=== PATIENT | female | born 1950 | race Caucasian/White ===

== ENCOUNTER → 2017-03-17 | Outpatient (CLI) | payer MEDICARE ==
[2017-03-17 09:27] LABS: Blood Urea Nitrogen 11 mg/dL (7-17); Non-African American GFR(MDRD) >60 (>60 ml/min/1.73 sqM)
== END | disposition home or self-care (01) ==
LOC: LABWHC1 08:40
PROVIDERS: ATTEND Neurological Surgery
DX: D33.0 Benign neoplasm of brain, supratentorial (principal)
CPT/HCPCS: 36415; 82565; 84520

== ENCOUNTER → 2017-04-24 | Outpatient (CLI) | payer MEDICARE ==
[2017-04-24 10:38] LABS: Blood Urea Nitrogen 11 mg/dL (7-17); Non-African American GFR(MDRD) >60 (>60 ml/min/1.73 sqM)
--- NOTE | 2017-04-24 13:20 | CT ---
EXAMINATION TYPE: CT angio head DATE OF EXAM: 04/24/2017 HISTORY: Headache, Family history of ischemic heart disease COMPARISON: 03/11/2016 and 03/23/2017 CT DLP: 2277 mGycm. Automated Exposure Control for Dose Reduction was Utilized. TECHNIQUE: CTA scan of the neck is performed without and with IV Contrast, patient injected with 100 ml mL of Omnipaque 350, axial images are obtained, coronal and sagittal reformatted images are revie wed. Three-D reconstructed images are created on an independent workstation and reviewed. FINDINGS: Carotid/Vascular Structures: Although the posterior communicating arteries appear diminutive the circ le of Ayala appears complete. There is no focal stenosis or intracranial aneurysm appreciated. The l eft vertebral artery is diminutive with right dominance. Other: Right frontal encephalomalacia and right frontal craniotomy defect with calvarial plates are s een from prior meningioma resection. The previously seen small focus of enhancement along the right f rontal lobe laterally on the prior MRI measuring 8 mm that was dural based and stable is not well more reciated on today's examination. No abnormal enhancement is seen. No intracranial mass effect is pres ent. Ventricles and peripheral sulci are symmetric. No intracranial hemorrhage on the unenhanced imag es. Paranasal sinuses are well aerated. IMPRESSION: 1. No evidence of focal arterial stenosis or intracranial aneurysm. 2. No evidence of acute intracranial hemorrhage or mass effect. 3. Right frontal lobe encephalomalacia and postoperative changes from prior meningioma resection.
== END ==
LOC: RADCTMAIN 09:51
PROVIDERS: ATTEND Neurological Surgery
DX: G93.89 Other specified disorders of brain (principal); Z98.890 Other specified postprocedural states; Z86.011 Personal history of benign neoplasm of the brain
CPT/HCPCS: 82565; 84520; 70496; 36415; Q9967

== ENCOUNTER 2017-08-08 20:41 | Inpatient (IN) | payer MEDICARE ==
[2017-08-08] MEDS ORDERED: SODIUM CHLORIDE 0.9% 1,000 ML IV STA (21:16)
--- NOTE | 2017-08-08 21:30 | ED ---
Abdominal Pain HPI - General Chief Complaint: Abdominal Pain Stated Complaint: Abd pain Time Seen by Provider: 08/08/17 21:09 Source: patient, family, RN notes reviewed Mode of arrival: ambulatory Limitations: no limitations - History of Present Illness Initial Comments: This is a 67-year-old female who presents to the emergency department with chief complaint of abdominal pain. Patient states that she has had generalized abdominal pain for the past 4 days. She describes the pain as dull and achy and currently rates it as 5/10. She states that the pain is made worse with coughing and moving quickly. Pain is made better when patient lies in the position. She admits to associated chills and nausea. Denies vomiting, diarrhea or constipation. Denies fevers, chest pain or shortness of breath. - Related Data Allergies Allergy/AdvReac Type Severity Reaction Status Date / Time Sulfa (Sulfonamide Allergy Rash/Hives Verified 08/08/17 20:46 Antibiotics) lorazepam [From Ativan] AdvReac Unknown Verified 08/08/17 20:47 Review of Systems ROS Statement: Those systems with pertinent positive or pertinent negative responses have been documented in the HPI. ROS Other: All systems not noted in ROS Statement are negative. Past Medical History Past Medical History: Thyroid Disorder Additional Past Medical History / Comment(s): osteoporosis History of Any Multi-Drug Resistant Organisms: None Reported Past Surgical History: Breast Surgery, Tubal Ligation Past Psychological History: No Psychological Hx Reported Smoking Status: Former smoker Past Alcohol Use History: Occasional Past Drug Use History: None Reported General Exam - General Exam Comments Initial Comments: General: Awake and alert, well-developed; in no apparent distress. is at bedside. HEENT: Head atraumatic, normocephalic. Pupils are equal, round and reactive to light. Extraocular movements intact. Oropharynx moist without erythema or exudate. Neck: Supple. Normal ROM. Cardiovascular: Regular rate and rhythm. No murmurs, rubs or gallops. Chest symmetrical. Respiratory: Lungs clear to auscultation bilaterally. No wheezes, rales or rhonchi. Normal respiratory effort with no use of accessory muscles. Abdomen: Soft, non-distended. Tenderness on palpation of epigastrium with guarding. No rigidity, rebound. Normal bowel sounds in all 4 quadrants. Musculoskeletal: Normal ROM, no tenderness bilateral upper and lower extremities. Skin: [place], warm and dry without rashes or lesions. Neurological: Alert and oriented x3. CN II-XII grossly intact. Speech is fluent and answers are appropriate. No focal neuro deficits. Psychiatric: Normal mood and affect. No overt signs of depression or anxiety noted. Limitations: no limitations Course Vital Signs 08/08/17 08/08/17 20:42 22:55 Temperature 97.8 F Pulse Rate 69 83 Respiratory 20 18 Rate Blood Pressure 128/71 146/65 O2 Sat by Pulse 98 96 Oximetry - Reevaluation(s) Reevaluation #1: Patient was reevaluated and findings were discussed. Patient's abdomen is tender on palpation and she continues to complain of abdominal pain. Patient states that she has a family history of abdominal aortic aneurysms. There is a pulsatile mass felt on palpation of the patient's abdomen. Computed tomography scan of abdomen and pelvis with IV contrast will be obtained at this time. Pending results. 08/08/17 22:57 Reevaluation #2: Computed tomography scan of abdomen and pelvis with contrast revealed evidence for infectious versus ischemic colitis. Patient was started on broad-spectrum antibiotics, Zosyn and a second liter bolus was administered. Findings were discussed with patient and she is aware that she will be admitted to the hospital. She is in agreement. 08/09/17 00:22 Medical Decision Making - Medical Decision Making This is a 67-year-old female who presents to the emergency department with chief complaint of abdominal pain. CBC, CMP, coags and a UA were within normal limits. Patient continued to be tender in epigastrium and right upper quadrant so a computed tomography scan was obtained which revealed evidence for infectious versus ischemic colitis. This case was discussed with attending physician, Dr. Veloz who also evaluated the patient. Ultrasound gallbladder revealed no evidence for gallstones or dilated ducts. Patient will be admitted to Dr. David muniz with diagnosis of colitis. She will continue IV Zosyn. Findings and plan were discussed with patient who is in agreement. She is in no acute distress and vital signs are stable. All questions answered. - Lab Data Result diagrams: 08/08/17 21:06 08/08/17 21:06 Lab Results 08/08/17 08/08/17 08/08/17 Range/Units 21:06 21:06 21:06 WBC 7.5 (3.8-10.6) k/uL RBC 3.87 (3.80-5.40) m/uL Hgb 12.4 (11.4-16.0) gm/dL Hct 38.1 (34.0-46.0) % MCV 98.4 (80.0-100.0) fL MCH 31.9 (25.0-35.0) pg MCHC 32.4 (31.0-37.0) g/dL RDW 12.8 (11.5-15.5) % Plt Count 181 (150-450) k/uL Neutrophils % 76 % Lymphocytes % 17 % Monocytes % 5 % Eosinophils % 1 % Basophils % 0 % Neutrophils # 5.7 (1.3-7.7) k/uL Lymphocytes # 1.2 (1.0-4.8) k/uL Monocytes # 0.4 (0-1.0) k/uL Eosinophils # 0.1 (0-0.7) k/uL Basophils # 0.0 (0-0.2) k/uL PT 9.5 (9.0-12.0) sec INR 0.9 (<1.2) APTT 22.3 (22.0-30.0) sec Sodium 138 (137-145) mmol/L Potassium 4.0 (3.5-5.1) mmol/L Chloride 103 (98-107) mmol/L Carbon Dioxide 26 (22-30) mmol/L Anion Gap 9 mmol/L BUN 14 (7-17) mg/dL Creatinine 0.50 L (0.52-1.04) mg/dL Est GFR (MDRD) Af Amer >60 (>60 ml/min/1.73 sqM) Est GFR (MDRD) Non-Af >60 (>60 ml/min/1.73 sqM) Glucose 84 (74-99) mg/dL Plasma Lactic Acid Law (0.7-2.0) mmol/L Calcium 9.0 (8.4-10.2) mg/dL Total Bilirubin 0.3 (0.2-1.3) mg/dL AST 25 (14-36) U/L ALT 29 (9-52) U/L Alkaline Phosphatase 52 (38-126) U/L Total Protein 6.3 (6.3-8.2) g/dL Albumin 3.9 (3.5-5.0) g/dL Amylase 87 (30-110) U/L Lipase 154 (23-300) U/L Urine Color Urine Appearance (Clear) Urine pH (5.0-8.0) Ur Specific Stanton (1.001-1.035) Urine Protein (Negative) Urine Glucose (UA) (Negative) Urine Ketones (Negative) Urine Blood (Negative) Urine Nitrite (Negative) Urine Bilirubin (Negative) Urine Urobilinogen (<2.0) mg/dL Ur Leukocyte Esterase (Negative) Urine RBC (0-5) /hpf Urine WBC (0-5) /hpf Amorphous Sediment (None) /hpf Urine Mucus (None) /hpf 08/08/17 08/09/17 Range/Units 22:00 00:16 WBC (3.8-10.6) k/uL RBC (3.80-5.40) m/uL Hgb (11.4-16.0) gm/dL Hct (34.0-46.0) % MCV (80.0-100.0) fL MCH (25.0-35.0) pg MCHC (31.0-37.0) g/dL RDW (11.5-15.5) % Plt Count (150-450) k/uL Neutrophils % % Lymphocytes % % Monocytes % % Eosinophils % % Basophils % % Neutrophils # (1.3-7.7) k/uL Lymphocytes # (1.0-4.8) k/uL Monocytes # (0-1.0) k/uL Eosinophils # (0-0.7) k/uL Basophils # (0-0.2) k/uL PT (9.0-12.0) sec INR (<1.2) APTT (22.0-30.0) sec Sodium (137-145) mmol/L Potassium (3.5-5.1) mmol/L Chloride (98-107) mmol/L Carbon Dioxide (22-30) mmol/L Anion Gap mmol/L BUN (7-17) mg/dL Creatinine (0.52-1.04) mg/dL Est GFR (MDRD) Af Amer (>60 ml/min/1.73 sqM) Est GFR (MDRD) Non-Af (>60 ml/min/1.73 sqM) Glucose (74-99) mg/dL Plasma Lactic Acid Law <0.5 L (0.7-2.0) mmol/L Calcium (8.4-10.2) mg/dL Total Bilirubin (0.2-1.3) mg/dL AST (14-36) U/L ALT (9-52) U/L Alkaline Phosphatase (38-126) U/L Total Protein (6.3-8.2) g/dL Albumin (3.5-5.0) g/dL Amylase (30-110) U/L Lipase (23-300) U/L Urine Color Yellow Urine Appearance Cloudy H (Clear) Urine pH 8.5 H (5.0-8.0) Ur Specific Stanton 1.012 (1.001-1.035) Urine Protein Negative (Negative) Urine Glucose (UA) Negative (Negative) Urine Ketones Negative (Negative) Urine Blood Negative (Negative) Urine Nitrite Negative (Negative) Urine Bilirubin Negative (Negative) Urine Urobilinogen <2.0 (<2.0) mg/dL Ur Leukocyte Esterase Negative (Negative) Urine RBC 5 (0-5) /hpf Urine WBC 2 (0-5) /hpf Amorphous Sediment Rare H (None) /hpf Urine Mucus Rare H (None) /hpf - Radiology Data Radiology results: report reviewed X-ray KUB findings: Nonspecific bowel gas throughout the abdomen. Psoas margins are normal. No organomegaly is present. Impression: Nonspecific abdomen. CT abdomen and pelvis with contrast impression: There is extensive inflammatory change involving the hepatic flexure of the colon with wall thickening and edema. There is free fluid in the right pericolic gutter. The appearance is nonspecific and could relate to infectious or ischemic colitis. Consider Crohn' s disease. No evidence of an abscess. Infiltrative neoplastic process is possible. Minimal subsegmental atelectasis at the lung bases. Gallbladder ultrasound impression: No gallstones or dilated ducts. Right kidney appears normal. No focal liver defect. Disposition Clinical Impression: Colitis Disposition: ADMITTED IP TO THIS [facility] Condition: Stable Time of Disposition: 02:54
--- NOTE | 2017-08-08 21:37 | XR ---
EXAMINATION TYPE: XR KUB DATE OF EXAM: 08/08/2017 COMPARISON: NONE INDICATION: Upper and lower abdominal pain TECHNIQUE: Single view abdomen frontal projection FINDINGS: Nonspecific bowel gas throughout the abdomen. Psoas margins are normal. No organomegaly is present. IMPRESSION: 1. Nonspecific abdomen
[2017-08-08 21:55] LABS: Basophils % (A) 0 %; Eosinophils # (A) 0.1 k/uL (0-0.7); Eosinophils % (A) 1 %; HCT 38.1 % (34.0-46.0); HGB 12.4 gm/dL (11.4-16.0); Lymphocytes # (A) 1.2 k/uL (1.0-4.8); Lymphocytes % (A) 17 %; MCH 31.9 pg (25.0-35.0); MCHC 32.4 g/dL (31.0-37.0); MCV 98.4 fL (80.0-100.0); Mean Platelet Volume 7.6; Monocytes # (A) 0.4 k/uL (0-1.0); Monocytes % (A) 5 %; Neutrophils # (A) 5.7 k/uL (1.3-7.7); Neutrophils % (A) 76 %; Platelet Count 181 k/uL (150-450); RBC 3.87 m/uL (3.80-5.40); RDW 12.8 % (11.5-15.5); WBC 7.5 k/uL (3.8-10.6)
[2017-08-08 22:06] LABS: INR 0.9 (<1.2); Partial Thromboplastin Time 22.3 sec (22.0-30.0); Prothrombin Time 9.5 sec (9.0-12.0)
[2017-08-08 22:07] LABS: ALT 29 U/L (9-52); AST 25 U/L (14-36); Albumin 3.9 g/dL (3.5-5.0); Alkaline Phosphatase 52 U/L (38-126); Amylase 87 U/L (30-110); Anion Gap 9 mmol/L; Blood Urea Nitrogen 14 mg/dL (7-17); Carbon Dioxide 26 mmol/L (22-30); Chloride 103 mmol/L (98-107); Glucose 84 mg/dL (74-99); Lipase 154 U/L (23-300); Sodium 138 mmol/L (137-145); Total Bilirubin 0.3 mg/dL (0.2-1.3); Total Protein 6.3 g/dL (6.3-8.2)
[2017-08-08 22:39] LABS: Amorphous Sediment,Urine Rare /hpf; Appearance,Urine Cloudy (Clear); Bilirubin,Urine Negative (Negative); Blood,Urine Negative (Negative); Color,Urine Yellow; Glucose,Urine (UA) Negative (Negative); Ketones,Urine Negative (Negative); Leukocyte Esterase,Urine Negative (Negative); Mucus,Urine Rare /hpf; PH, Urine 8.5 (5.0-8.0); Protein,Urine Negative (Negative); RBC,Urine 5 /hpf (0-5); Specific Gravity,Urine 1.012 (1.001-1.035); Urobilinogen,Urine <2.0 mg/dL (<2.0); WBC,Urine 2 /hpf (0-5)
[2017-08-08] MEDS ORDERED: RX INFO: IV CONTRAST WAS GIVEN 1 EACH MISC MISCELLANE PRN (22:56)
--- NOTE | 2017-08-08 23:52 | CT ---
EXAMINATION TYPE: CT abdomen pelvis w con DATE OF EXAM: 08/08/2017 COMPARISON: NONE HISTORY: pain CT DLP: 419.20 mGycm Automated exposure control for dose reduction was used. TECHNIQUE: Helical acquisition of images was performed from the lung bases through the pelvis. CONTRAST: Performed without Oral Contrast and with IV Contrast, patient injected with 100 mL of Omnipaque 300. FINDINGS: There is mild linear density at the posterior lung bases. There are bilateral breast implants. There is no pleural effusion. There is no pericardial effusion. Liver spleen pancreas gallbladder appear normal. Bile ducts are not dilated. There is no adrenal mass. Kidneys show satisfactory contrast opacification. There is no hydronephrosi s. There is some free fluid in the right paracolic gutter. There is wall thickening involving the hep atic flexure of the colon. The appendix appears normal. Small bowel appears normal. Bladder distends smoothly. There is no evidence of a pelvic mass. I see no bony destructive process. IMPRESSION: THERE IS EXTENSIVE INFLAMMATORY CHANGE INVOLVING THE HEPATIC FLEXURE OF THE COLON WITH WALL THICKENIN G AND EDEMA. THERE IS FREE FLUID IN THE RIGHT PARACOLIC GUTTER. THE APPEARANCE IS NONSPECIFIC AND COU LD RELATE TO INFECTIOUS OR ISCHEMIC COLITIS. CONSIDER CROHN'S DISEASE. NO EVIDENCE OF AN ABSCESS. INF ILTRATIVE NEOPLASTIC PROCESS IS POSSIBLE. MINIMAL SUBSEGMENTAL ATELECTASIS AT THE LUNG BASES.
[2017-08-09] MEDS ORDERED: PIPERACILLIN-TAZOBACTAM 3.375 GM in DEXTROSE/WATER 1 50ML.BAG IVPB STA (00:03)
[2017-08-09] MEDS ORDERED: SODIUM CHLORIDE 0.9% 1,000 ML IV STA (00:04)
--- NOTE | 2017-08-09 01:41 | US ---
EXAMINATION TYPE: US gallbladder DATE OF EXAM: 08/09/2017 COMPARISON: NONE CLINICAL HISTORY: Pain. EXAM MEASUREMENTS: Liver Length: 12.2 cm Gallbladder Wall: 0.2 cm CBD: 0.5 cm Right Kidney: 10.4 x 4.2 x 4.5 cm Pancreas: wnl Liver: wnl Gallbladder: wnl Evidence for sonographic Bhat's sign: no CBD: wnl Right Kidney: wnl Small amount of fluid in Morrisons pouch. IMPRESSION: No gallstones or dilated ducts. Right kidney appears normal. No focal liver defect.
[2017-08-09] MEDS ORDERED: NALOXONE 0.4 MG/ML 1 ML VIAL IV PRN (02:54)
[2017-08-09] MEDS ORDERED: MORPHINE SULFATE 4 MG/ML SYRINGE IV PRN (02:54)
[2017-08-09] MEDS ORDERED: Acetaminophen-Codeine 300-30mg TAB PO PRN (02:54)
[2017-08-09] MEDS ORDERED: ONDANSETRON 4 MG/2 ML VIAL IVP PRN (02:54)
[2017-08-09] MEDS ORDERED: ACETAMINOPHEN TAB 325 MG TAB PO PRN (02:54)
[2017-08-09] MEDS ORDERED: SODIUM CHLORIDE 0.9% 1,000 ML IV SCH (03:00)
[2017-08-09 04:20] VITALS: BMI 22.8
[2017-08-09] MEDS: PIPERACILLIN-TAZOBACTAM 3.375 GM in DEXTROSE/WATER 1 50ML.BAG IVPB SCH ×2 (08:25→16:20)
[2017-08-09 08:30] VITALS: RESP 18
[2017-08-09] MEDS ORDERED: RALOXIFENE 60 MG TAB PO SCH (11:00)
[2017-08-09] MEDS ORDERED: LORATADINE 10 MG TAB PO SCH (11:00)
[2017-08-09] MEDS ORDERED: NON-FORMULARY DRUG (Thyroid,Pork [Armour Thyroid] 60 MG) PO SCH (11:00)
--- NOTE | 2017-08-09 11:18 | P.GSHP ---
History of Present Illness H&P Date: 08/09/17 Patient is a 67-year-old white female who presented to the emergency room with a several-day history of diffuse abdominal discomfort. The pain is described as aching in nature and was greatest in the midepigastric and upper abdomen. The patient had nausea but no vomiting. She has intermittent diarrhea and constipation. She has not noted any blood in her stool. She states that the pain she felt dizzy yesterday and therefore presented to the emergency department. In the emergency room a CAT scan was performed which revealed extensive inflammatory change involving the hepatic flexure with wall thickening and edema. There was free fluid in the right paracolic gutter. The pain was nonspecific and could be infectious or ischemic ischemic colitis. Consideration of Crohn's disease was suggested. The patients liver or spleen pancreas and gallbladder appeared normal. The patient subsequently had an ultrasound of her gallbladder which revealed no gallstones or dilated ducts. The patient states he is feeling much better this morning. Her last colonoscopy was approximately 7 years ago when she is due for colonoscopy at this time. Family history: Negative for cancer or colon disease Patient herself had breast cancer approximately 8 and half years ago and has had bilateral mastectomies with reconstruction Past surgical history: 1. Bilateral mastectomy and reconstruction 2. Meningioma 3. Tubal ligation Past medical history: Negative Medications: Zoloft Synthroid Evista ALLERGIES: Sulfa and Ativan Review of systems: HEENT: Sonal her nose and mouth and tinnitus Lungs: Negative Heart: Negative : Negative Endocrine: Patient takes Synthroid - Constitutional Constitutional: Reports as per HPI - Breasts Comment: Bilateral mastectomies - Cardiovascular Cardiovascular: Reports as per HPI - Gastrointestinal Gastrointestinal: Reports as per HPI - Genitourinary (Female) Genitourinary: Reports as per HPI - Endocrine Endocrine: Reports as per HPI Past Medical History Past Medical History: Thyroid Disorder Additional Past Medical History / Comment(s): osteoporosis, breast cancer in 2009, meningioma in 2009, History of Any Multi-Drug Resistant Organisms: None Reported Past Surgical History: Breast Surgery, Tubal Ligation Additional Past Surgical History / Comment(s): brain surgery and bilateral mastectomy in 2009 Past Psychological History: No Psychological Hx Reported Smoking Status: Former smoker Past Alcohol Use History: Occasional Past Drug Use History: None Reported - Past Family History Mother Family Medical History: Hypertension Additional Family Medical History / Comment(s): osteoporosis and of brain aneurysm Father Family Medical History: Chest Pain / Angina, Hypertension Additional Family Medical History / Comment(s): bipolar, of brain aneurysm Medications and Allergies Home Medications Medication Instructions Recorded Confirmed Type Ascorbic Acid [Vitamin C] 500 mg PO DAILY 08/09/17 08/09/17 History Aspirin [Adult Low Dose Aspirin EC] 81 mg PO QAM 08/09/17 08/09/17 History Biotin 5 mg PO DAILY 08/09/17 08/09/17 History Calcium Carbonate [Calcium] 600 mg PO DAILY 08/09/17 08/09/17 History Cetirizine HCl [Zyrtec] 10 mg PO QAM 08/09/17 08/09/17 History Cholecalciferol [Vitamin D3] 1,000 unit PO DAILY 08/09/17 08/09/17 History Cyanocobalamin (Vitamin B-12) 1,000 mcg PO DAILY 08/09/17 08/09/17 History [Vitamin B-12] Magnesium 200 mg PO DAILY 08/09/17 08/09/17 History Melatonin 3 mg PO 08/09/17 08/09/17 History Multivitamins, Thera [Multivitamin 1 tab PO DAILY 08/09/17 08/09/17 History (formulary)] Prentice-3 Fatty Acids/Fish Oil [Fish 1 cap PO DAILY 08/09/17 08/09/17 History Oil 1,000 mg Softgel] Raloxifene HCl [Raloxifene HCl] 60 mg PO QAM 08/09/17 08/09/17 History Sertraline [Zoloft] 50 mg PO 08/09/17 08/09/17 History Thyroid,Pork [Bally Thyroid] 60 mg PO QAM 08/09/17 08/09/17 History Allergies Allergy/AdvReac Type Severity Reaction Status Date / Time Sulfa (Sulfonamide Allergy Rash/Hives Verified 08/09/17 08:20 Antibiotics) lorazepam [From Ativan] AdvReac Unknown Verified 08/09/17 08:20 Surgical - Exam Vital Signs Temp Pulse Resp BP Pulse Ox 97.8 F 69 20 128/71 98 08/08/17 20:42 08/08/17 20:42 08/08/17 20:42 08/08/17 20:42 08/08/17 20:42 - General well developed, no distress - Eyes normal ocular movement - ENT normal pinna, normal nares, no hearing loss - Neck no masses, trachea midline, no lymphadectomy, no venous distension - Respiratory normal expansion, normal respiratory effort, clear to auscultation - Cardiovascular Rhythm: regular Heart Sounds: normal: S1, S2 - Abdomen No guarding or rebound Abdomen: soft, bowel sounds - Neurologic normal coordination - Psychiatric oriented to time, oriented to person, oriented to place, speech is normal Results - Labs 08/08/17 21:06 08/08/17 21:06 Abnormal Lab Results - Last 24 Hours (Table) 08/08/17 08/08/17 08/09/17 Range/Units 21:06 22:00 00:16 Creatinine 0.50 L (0.52-1.04) mg/dL Plasma Lactic Acid Law <0.5 L (0.7-2.0) mmol/L Urine Appearance Cloudy H (Clear) Urine pH 8.5 H (5.0-8.0) Amorphous Sediment Rare H (None) /hpf Urine Mucus Rare H (None) /hpf Diabetes panel 08/08/17 Range/Units 21:06 Sodium 138 (137-145) mmol/L Potassium 4.0 (3.5-5.1) mmol/L Chloride 103 (98-107) mmol/L Carbon Dioxide 26 (22-30) mmol/L BUN 14 (7-17) mg/dL Creatinine 0.50 L (0.52-1.04) mg/dL Glucose 84 (74-99) mg/dL Calcium 9.0 (8.4-10.2) mg/dL AST 25 (14-36) U/L ALT 29 (9-52) U/L Alkaline Phosphatase 52 (38-126) U/L Total Protein 6.3 (6.3-8.2) g/dL Albumin 3.9 (3.5-5.0) g/dL Calcium panel 08/08/17 Range/Units 21:06 Calcium 9.0 (8.4-10.2) mg/dL Albumin 3.9 (3.5-5.0) g/dL Pituitary panel 08/08/17 Range/Units 21:06 Sodium 138 (137-145) mmol/L Potassium 4.0 (3.5-5.1) mmol/L Chloride 103 (98-107) mmol/L Carbon Dioxide 26 (22-30) mmol/L BUN 14 (7-17) mg/dL Creatinine 0.50 L (0.52-1.04) mg/dL Glucose 84 (74-99) mg/dL Calcium 9.0 (8.4-10.2) mg/dL Adrenal panel 08/08/17 Range/Units 21:06 Sodium 138 (137-145) mmol/L Potassium 4.0 (3.5-5.1) mmol/L Chloride 103 (98-107) mmol/L Carbon Dioxide 26 (22-30) mmol/L BUN 14 (7-17) mg/dL Creatinine 0.50 L (0.52-1.04) mg/dL Glucose 84 (74-99) mg/dL Calcium 9.0 (8.4-10.2) mg/dL Total Bilirubin 0.3 (0.2-1.3) mg/dL AST 25 (14-36) U/L ALT 29 (9-52) U/L Alkaline Phosphatase 52 (38-126) U/L Total Protein 6.3 (6.3-8.2) g/dL Albumin 3.9 (3.5-5.0) g/dL - Imaging CT scan - abdomen: report reviewed, image reviewed US - abdomen: report reviewed, image reviewed Assessment and Plan Assessment: Impression/plan: 1. 67 year-old white female with abdominal discomfort most likely colitis 2. Bilateral mastectomies for breast cancer 3. History of meningioma status post surgery 4. Tubal ligation 5. Thyroid disorder on Bally Thyroid Plan: 1. Abdominal pain since resolved 2. Start clear liquid diet 3. after patient has resolution of symptoms colonoscopy in the near future
[2017-08-09] MEDS ORDERED: THYROID 60 MG PO SCH (12:00)
[2017-08-09 13:37] VITALS: BP 117/56; PULSE 86; TEMP 97.9
[2017-08-09] MEDS ORDERED: SERTRALINE 50 MG TAB PO SCH (21:00)
== END 2017-08-09 17:36 | disposition home or self-care (01) | DRG 392 ==
LOC: EC 20:41 → 6PED 08-09 02:51
PROVIDERS: ADMIT Surgery; ATTEND Surgery
DX: K52.9 Noninfective gastroenteritis and colitis, unspecified (principal); E07.9 Disorder of thyroid, unspecified; M81.0 Age-related osteoporosis without current pathological fracture; Z79.82 Long term (current) use of aspirin; Z79.899 Other long term (current) drug therapy; Z90.13 Acquired absence of bilateral breasts and nipples; Z87.891 Personal history of nicotine dependence; Z86.011 Personal history of benign neoplasm of the brain; Z85.3 Personal history of malignant neoplasm of breast; Z88.2 Allergy status to sulfonamides; Z88.8 Allergy status to other drugs, medicaments and biological substances; Z82.49 Family history of ischemic heart disease and other diseases of the circulatory system
CPT/HCPCS: 36415; 74018; 74177; 76705; 80053; 81001; 82150; 83605; 83690; 85025; 85610; 85730; 96361; 96365; 96366; 99285

== ENCOUNTER → 2024-07-29 | Outpatient (CLI) | payer MEDICARE ==
[2024-07-29 15:22] LABS: BUN/Creat Ratio 26.33 Ratio (12.00-20.00); Blood Urea Nitrogen 15.8 mg/dL (9.0-27.0); Carbon Dioxide 25.7 mmol/L (21.6-31.8); Chloride 100 mmol/L (96-109); Glucose 92 mg/dL (70-110); Potassium 4.4 mmol/L (3.5-5.5); Sodium 136 mmol/L (135-145)
== END | disposition home or self-care (01) ==
LOC: LABWHC1 08:11
PROVIDERS: ATTEND Family Medicine
DX: E87.1 Hypo-osmolality and hyponatremia (principal)
CPT/HCPCS: 36415; 80048; 82570; 84300